=== PATIENT | female | born 1995 | race African-American/Black ===

== ENCOUNTER 2017-01-18 03:24 | Emergency (ER) | payer BC ==
[~2017-01-18] VITALS: Ht 165.1 cm; Wt 61.2 kg
[~2017-01-18 03:24] MED LIST: NKM
[2017-01-18] MEDS ORDERED: BIRTH CONTROL PILLS (03:32)
[2017-01-18] MEDS ORDERED: PHENAZOPYRIDIN200 MG ORAL (03:53)
[2017-01-18] MEDS ORDERED: KEFLEX500 MG ORAL (03:53)
--- NOTE | 2017-01-18 03:53 | Emergency Room Report ---
History of Present Illness General Chief Complaint: Female Urogenital Problems Source: Patient Present Illness HPI Is a 21-year-old female with no past medical history. She presents with chief complaint of dysuria, frequency, urgency and hematuria. Onset for 24 hours. No back pain. No fever or vomiting. Similar symptom in the past. Allergies: Coded Allergies: No Known Allergies (Unverified , 10/20/12) Patient History Past Medical History: none, see triage record, old chart reviewed Past Surgical History: none Pertinent Family History: none Social History: Denies: smoking Last Menstrual Period: nov Now: No Immunizations: other Reviewed Nursing Documentation: PMH: Agreed, PSxH: Agreed Nursing Documentation-PMH Past Medical History: No Stated History Review of Systems Eye: Denies: blurred vision, eye pain ENT: Denies: ear pain, nose congestion, throat swelling Respiratory: Denies: cough, shortness of breath Cardiovascular: Denies: chest pain, palpitations Gastrointestinal: Denies: abdominal pain, diarrhea, nausea, vomiting Genitourinary: Reports: dysuria, frequency, hematuria, pain, urgency Musculoskeletal: Denies: back pain, joint pain Skin: Denies: rash Neurological: Denies: headache, numbness Endocrine: Denies: increased thirst, increased urine Hematologic/Lymphatic: Denies: easy bruising All Other Systems: negative except mentioned in HPI Physical Exam Vital Signs Date Time Temp Pulse Resp B/P Pulse Ox O2 Delivery O2 Flow Rate FiO2 01/18/17 03:27 97.2 79 16 115/73 99 Room Air vitals normal Sp02 EP Interpretation: reviewed, normal General Appearance: well appearing, no apparent distress, alert Head: normocephalic, atraumatic Eyes: bilateral eye EOMI, bilateral eye PERRL ENT: hearing grossly normal, normal pharynx Neck: full range of motion, supple, no meningismus Respiratory: chest non-tender, lungs clear, normal breath sounds Cardiovascular #1: regular rate, rhythm, no murmur Gastrointestinal: normal bowel sounds, non tender, no mass, no organomegaly, no bruit, non-distended Musculoskeletal: back normal, gait/station normal, normal range of motion Psychiatric: mood/affect normal Skin: warm/dry Medical Decision Making Diagnostic Impression: Primary Impression: Cystitis ER Course Patient presents with UTI symptoms. No evidence of sepsis, pyelonephritis. Dose of antibiotics given here. Last Vital Signs Date Time Temp Pulse Resp B/P Pulse Ox O2 Delivery O2 Flow Rate FiO2 01/18/17 03:27 97.2 79 16 115/73 99 Room Air Status: improved Disposition: HOME, SELF-CARE Condition: Stable Scripts Phenazopyridine Hcl* (PYRIDIUM*) 200 Mg Tablet 200 MG ORAL THREE TIMES A DAY, #6 TAB 0 Refills Prov: PAMELA PIPER M.D. 01/18/17 Cephalexin* (KEFLEX*) 500 Mg Capsule 500 MG ORAL TID, #21 CAP 0 Refills Prov: PAMELA PIPER M.D. 01/18/17 Patient Instructions: Urinary Tract Infection Additional Instructions: Followup with your Dr. in 2-3 days. Return if symptom worsen. PAMELA PIPER M.D. Jan 18, 2017 03:53
[2017-01-18 04:00] VITALS: BP 115/73
[2017-01-18] MEDS ORDERED: Phenazopyridine 200mg tab ORAL ONE (04:00)
[2017-01-18] MEDS ORDERED: Cephalexin 500mg cap ORAL ONE (04:00)
[2017-01-18] MEDS ORDERED: Norco 5mg/325mg tab ORAL ONE (04:00)
== END 2017-01-18 04:00 | disposition home or self-care (01) ==
LOC: EMR 03:50
DX: N30.90 Cystitis, unspecified without hematuria (principal)
CPT/HCPCS: 87086; 87181; 99284

== ENCOUNTER 2017-07-15 06:09 | Emergency (ER) | payer BC ==
[~2017-07-15] VITALS: Ht 165.1 cm; Wt 62.1 kg
[~2017-07-15 06:09] MED LIST changes: +BIRTH CONTROL PILLS; +KEFLEX500 MG ORAL; +PHENAZOPYRIDIN200 MG ORAL
[2017-07-15 06:36] VITALS: BP 106/62
[2017-07-15] MEDS ORDERED: OMEPRAZOLE20 M2 ORAL (06:39)
[2017-07-15] MEDS ORDERED: Lidocaine 2% Visc 15ml soln ORAL ONE (06:45)
[2017-07-15] MEDS ORDERED: Famotidine 20 MG/ 2ML VIAL IVP ONE (06:45)
[2017-07-15] MEDS ORDERED: Dicyclomine HCl 10mg/5ml oral soln ORAL ONE (06:45)
[2017-07-15] MEDS ORDERED: Mylanta II UD 30ml ORAL ONE (06:45)
[2017-07-15 07:11] LABS: APPEARANCE,URINE SLIGHTLY CLOUDY; KETONES,URINE NEGATIVE (NEGATIVE); LEUKOCYTE ESTERASE ,URINE 1+ (NEGATIVE); NITRITE,URINE NEGATIVE (NEGATIVE); PH,URINE 7 (4.5-8.0); PROTEIN,URINE NEGATIVE (NEGATIVE); UROBILINOGEN,URINE 1 MG/DL (0.0-1.0)
[2017-07-15 07:15] VITALS: BP 112/66
[2017-07-15 07:20] LABS: MEAN CORPUSCULAR HEMOGLOBIN 31.3 PG (27.0-31.0); MEAN CORPUSCULAR HGB CONC 33.5 G/DL (32.0-36.0); MEAN CORPUSCULAR VOLUME 93 FL (80-99); MEAN PLATELET VOLUME 9.5 FL (6.5-10.1); PLATELET COUNT 182 K/UL (150-450); RED BLOOD COUNT 4.24 M/UL (4.20-5.40); RED CELL DISTRIBUTION WIDTH 11.1 % (11.6-14.8); WHITE BLOOD COUNT 11.4 K/UL (4.8-10.8)
[2017-07-15 07:29] LABS: ALANINE AMINOTRANSFERASE 12 U/L (3-33); ALBUMIN/GLOBULIN RATIO 1.1 (1.0-2.7); ANION GAP 12 (5-15); ASPARTATE AMINO TRANSFERASE 19 U/L (5-40); CALCIUM 8.7 mg/dL (8.6-10.2); CARBON DIOXIDE 23 mEQ/L (20-30); CHLORIDE 102 mEQ/L (98-107); CREATININE 0.7 mg/dL (0.5-0.9); GLOMERULAR FILTRATION RATE > 60 mL/min (>60); HEMOLYSIS 4; LIPASE 18 U/L (< 60); POTASSIUM 3.9 mEQ/L (3.4-4.9); SODIUM 137 mEQ/L (135-145); TOTAL PROTEIN 6.9 g/dL (6.6-8.7)
[2017-07-15 07:33] LABS: TROPONIN I < 0.30 ng/mL (<=0.30)
[2017-07-15 07:47] LABS: BACTERIA,URINE FEW /HPF; RBC,URINE 0-2 /HPF (0 - 2); SQUAMOUS EPITHELIAL CELL,UR FEW /LPF (NONE/OCC)
[2017-07-15] MEDS ORDERED: ZOFRAN ODT4 MG ORAL (08:11)
[2017-07-15] MEDS ORDERED: RANITIDINE HCL150 MG ORAL (08:11)
[2017-07-15 08:26] VITALS: BP 113/70
[2017-07-15 08:29] LABS: BAND NEUTROPHILS % (MANUAL) 0 % (0-8); BASOPHILS % (MANUAL) 0 % (0-2); EOSINOPHILS % (MANUAL) 1 % (0-3); LYMPHOCYTES % (MANUAL) 7 % (20-45); NEUTROPHILS % (MANUAL) 89 % (45-75); PLATELET ESTIMATE ADEQUATE; PLATELET MORPHOLOGY NORMAL; TOTAL CELLS COUNTED 100
--- NOTE | 2017-07-15 09:27 | Emergency Room Report ---
History of Present Illness General Chief Complaint: Abdominal Pain Source: Patient Present Illness HPI 22-year-old female presents ED for evaluation. States that since last night she 's been experiencing abdominal pain with vomiting and diarrhea. Pain is epigastric, sharp, 10 out of 10, nonradiating. Notes vomiting and diarrhea. States symptoms started shortly after eating dinner last night. Patient states she did recently returned from [place]. States she also took antibiotics approximately 2 weeks ago for UTI. Denies fevers or chills. No other aggravating relieving factors. Denies any other associated symptoms Allergies: Coded Allergies: No Known Allergies (Unverified , 10/20/12) Patient History Past Medical History: none Past Surgical History: none Pertinent Family History: none Social History: Denies: smoking, alcohol use, drug use Last Menstrual Period: JUN 23 Now: No Immunizations: UTD Reviewed Nursing Documentation: PMH: Agreed, PSxH: Agreed Review of Systems All Other Systems: negative except mentioned in HPI Physical Exam Vital Signs Date Time Temp Pulse Resp B/P (MAP) Pulse Ox O2 Delivery O2 Flow Rate FiO2 07/15/17 06:16 98.1 91 20 116/71 98 Room Air Sp02 EP Interpretation: reviewed, normal General Appearance: no apparent distress, alert, GCS 15, non-toxic Head: normocephalic, atraumatic Eyes: bilateral eye normal inspection, bilateral eye PERRL ENT: hearing grossly normal, normal pharynx, no angioedema, normal voice Neck: full range of motion, supple/symm/no masses Respiratory: chest non-tender, lungs clear, normal breath sounds, speaking full sentences Cardiovascular #1: regular rate, rhythm, no edema Cardiovascular #2: 2+ carotid (R), 2+ carotid (L), 2+ radial (R), 2+ radial (L) , 2+ dorsalis pedis (R), 2+ dorsalis pedis (L) Gastrointestinal: normal bowel sounds, soft, non-distended, no guarding, no rebound, tenderness Rectal: deferred Genitourinary: normal inspection, no CVA tenderness Musculoskeletal: back normal, gait/station normal, normal range of motion, non- tender Neurologic: alert, oriented x3, responsive, motor strength/tone normal, sensory intact, speech normal Psychiatric: judgement/insight normal, memory normal, mood/affect normal, no suicidal/homicidal ideation Reflexes: 3+ bicep (R), 3+ bicep (L), 3+ tricep (R), 3+ tricep (L), 3+ knee (R) , 3+ knee (L) Skin: normal color, no rash, warm/dry, well hydrated Lymphatic: no adenopathy Medical Decision Making Diagnostic Impression: Primary Impression: Gastroenteritis ER Course Hospital Course 22-year-old F presents to ED with cramping abdominal pain with vomiting, diarrhea differential diagnosis: gastritis, SBO, cholecystits, gastroenteritis Clinical course Patient placed on stretcher. 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 After initial history and physical I ordered labs, IV fluids, Zofran and Zantac Labs - minimal leukocytosis, electrolytes ok, LFTs normal, UA unremarkable Upon reassessment, patient states pain has improved. findings consistent with gastroenteritis Patient does have history I could complicate the etiology of the diarrhea including the recent travel and recent antibiotic use. However the symptoms did occur shortly after meal I discussed these issues with the patient. She will declines antibiotics at this time and will return if symptoms do not resolve I feel this is a highly complex case requiring extensive working including EKG/ Rhythm strip, Xray/CT/US, Blood/urine lab work, repeat exams while in ED, and administration of strong opiates/narcotics for pain control, admission to hospital or close patient follow up. Diagnosis - gastroenteritis Stable and discharged to home with prescriptions for Zantac, zofran. Followup with PMD. Return to ED if symptoms recur or worsen Labs Test 07/15/17 06:25 07/15/17 06:50 Urine Color Pale yellow Urine Appearance Slightly cloudy Urine pH 7 (4.5-8.0) Urine Specific [place] 1.010 (1.005-1.035) Urine Protein Negative (NEGATIVE) Urine Glucose (UA) Negative (NEGATIVE) Urine Ketones Negative (NEGATIVE) Urine Occult Blood Negative (NEGATIVE) Urine Nitrite Negative (NEGATIVE) Urine Bilirubin Negative (NEGATIVE) Urine Urobilinogen 1 MG/DL (0.0-1.0) Urine Leukocyte Esterase 1+ (NEGATIVE) Urine RBC 0-2 /HPF (0 - 2) Urine WBC 2-4 /HPF (0 - 2) Urine Squamous Epithelial Cells Few /LPF (NONE/OCC) Urine Bacteria Few /HPF (NONE) Urine HCG, Qualitative Negative White Blood Count 11.4 K/UL (4.8-10.8) Red Blood Count 4.24 M/UL (4.20-5.40) Hemoglobin 13.3 G/DL (12.0-16.0) Hematocrit 39.6 % (37.0-47.0) Mean Corpuscular Volume 93 FL (80-99) Mean Corpuscular Hemoglobin 31.3 PG (27.0-31.0) Mean Corpuscular Hemoglobin Concent 33.5 G/DL (32.0-36.0) Red Cell Distribution Width 11.1 % (11.6-14.8) Platelet Count 182 K/UL (150-450) Mean Platelet Volume 9.5 FL (6.5-10.1) Neutrophils (%) (Auto) % (45.0-75.0) Lymphocytes (%) (Auto) % (20.0-45.0) Monocytes (%) (Auto) % (1.0-10.0) Eosinophils (%) (Auto) % (0.0-3.0) Basophils (%) (Auto) % (0.0-2.0) Differential Total Cells Counted 100 Neutrophils % (Manual) 89 % (45-75) Lymphocytes % (Manual) 7 % (20-45) Monocytes % (Manual) 3 % (1-10) Eosinophils % (Manual) 1 % (0-3) Basophils % (Manual) 0 % (0-2) Band Neutrophils 0 % (0-8) Platelet Estimate Adequate Platelet Morphology Normal Red Blood Cell Morphology Normal Sodium Level 137 mEQ/L (135-145) Potassium Level 3.9 mEQ/L (3.4-4.9) Chloride Level 102 mEQ/L (98-107) Carbon Dioxide Level 23 mEQ/L (20-30) Anion Gap 12 (5-15) Blood Urea Nitrogen 9 mg/dL (7-23) Creatinine 0.7 mg/dL (0.5-0.9) Estimat Glomerular Filtration Rate > 60 mL/min (>60) Glucose Level 114 mg/dL (74-106) Calcium Level 8.7 mg/dL (8.6-10.2) Total Bilirubin 0.4 mg/dL (0.0-1.2) Aspartate Amino Transf (AST/SGOT) 19 U/L (5-40) Alanine Aminotransferase (ALT/SGPT) 12 U/L (3-33) Alkaline Phosphatase 51 U/L (35-104) Troponin I < 0.30 ng/mL (<=0.30) Total Protein 6.9 g/dL (6.6-8.7) Albumin 3.7 g/dL (3.5-5.2) Globulin 3.2 g/dL Albumin/Globulin Ratio 1.1 (1.0-2.7) Lipase 18 U/L (< 60) Last Vital Signs Date Time Temp Pulse Resp B/P (MAP) Pulse Ox O2 Delivery O2 Flow Rate FiO2 07/15/17 08:26 80 19 113/70 100 Room Air 07/15/17 07:15 97.3 Status: improved Disposition: HOME, SELF-CARE Condition: Stable Scripts Ondansetron Odt* (ZOFRAN ODT*) 4 Mg Tab.rapdis 4 MG ORAL Q6H Y for Nausea & Vomiting, #30 TAB 0 Refills Prov: DANIELE TRONCOSO M.D. 07/15/17 Ranitidine Hcl* (ZANTAC*) 150 Mg Tablet 150 MG ORAL TWICE A DAY, #30 TAB Prov: DANIELE TRONCOSO M.D. 07/15/17 Patient Instructions: Viral Gastroenteritis, Adult, [id number] DANIELE TRONCOSO M.D. Jul 15, 2017 09:27
[2017-07-16] MEDS ORDERED: LANSOPRAZOLE30 MG ORAL (07:04)
== END 2017-07-15 08:28 | disposition home or self-care (01) ==
LOC: EMR 06:35
DX: K52.9 Noninfective gastroenteritis and colitis, unspecified (principal)
CPT/HCPCS: 36415; 80053; 81003; 81025; 83690; 84484; 85007; 85025; 96360; 96374; 96375; 99284; J2405; S0028

== ENCOUNTER 2017-07-16 06:31 | Emergency (ER) | payer BC ==
[~2017-07-16] VITALS: Ht 165.1 cm; Wt 62.1 kg
[~2017-07-16 06:31] MED LIST changes: +OMEPRAZOLE20 M2 ORAL; +RANITIDINE HCL150 MG ORAL; +ZOFRAN ODT4 MG ORAL
[2017-07-16 06:56] VITALS: BP 117/71
[2017-07-16] MEDS ORDERED: Famotidine 20 MG/ 2ML VIAL IVP ONE (07:00)
[2017-07-16] MEDS ORDERED: Esomeprazole sodium 40mg vial IVP ONE (07:00)
--- NOTE | 2017-07-16 07:02 | Emergency Room Report ---
History of Present Illness General Chief Complaint: Abdominal Pain Source: Patient Present Illness HPI 22YOF walk-in with continued epigastric pain, /, gnawing in sensation, worse overnight. Was here yesterday morning for same. Labs/urine checked. Mild leuks. Was given PO zofran, pepcid for presumed gastroenteritis. Took one of each, no improvement. Pain has NOT migrated. History of acid reflux. 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." Takes daily PPI, zantac Had more episodes of vomiting last night Denies urinary complaints Allergies: Coded Allergies: No Known Allergies (Unverified , 10/20/12) Patient History Past Medical History: other - acid reflux Past Surgical History: none Pertinent Family History: none Social History: Denies: smoking, alcohol use, drug use Last Menstrual Period: 06/23/17 Now: No : 0 Para: 0 Immunizations: UTD Reviewed Nursing Documentation: PMH: Agreed, PSxH: Agreed Review of Systems All Other Systems: negative except mentioned in HPI Physical Exam Vital Signs Date Time Temp Pulse Resp B/P (MAP) Pulse Ox O2 Delivery O2 Flow Rate FiO2 07/16/17 06:36 97.5 101 16 118/69 97 Room Air Sp02 EP Interpretation: reviewed, normal General Appearance: normal inspection, well appearing, no apparent distress, alert Head: atraumatic ENT: normal ENT inspection, hearing grossly normal, normal voice Neck: normal inspection, full range of motion, supple, no bony tend Respiratory: normal inspection, lungs clear, normal breath sounds, no respiratory distress, no retraction, no wheezing Cardiovascular #1: regular rate, rhythm, no edema Gastrointestinal: normal inspection, normal bowel sounds, soft, no guarding, no hernia, other - +epigastric ttp. No rebound, guarding or peritonitis. Genitourinary: no CVA tenderness Musculoskeletal: normal inspection, back normal, normal range of motion, Binta' s Sign negative Neurologic: normal inspection, alert, oriented x3, responsive, tongue stitcher III-XII nml as tested, motor strength/tone normal, speech normal Psychiatric: normal inspection, judgement/insight normal, mood/affect normal Skin: normal inspection, normal color, no rash Medical Decision Making Diagnostic Impression: Primary Impression: Gastroenteritis Additional Impression: Abdominal pain Qualified Codes: R10.13 - Epigastric pain ER Course VSS. Afebrile Pain remains epigastric. Non-radiating Low suspicion for appy, jag given now normalized WBC, no LFT or lipase abnormality Improved with addition of IV nexium today Tolerating PO Will Rx stronger PPI Needs endoscopy - gave referral for Dr Pruitt who actually saw patient in ED DC home Last Vital Signs Date Time Temp Pulse Resp B/P (MAP) Pulse Ox O2 Delivery O2 Flow Rate FiO2 07/16/17 06:56 106 14 117/71 99 Room Air 07/16/17 06:36 97.5 Status: improved Disposition: HOME, SELF-CARE Scripts Lansoprazole* (LANSOPRAZOLE*) 30 Mg Capsule. 30 MG ORAL DAILY for 30 Days, #30 CAP Prov: HOSSEIN POTTS M.D. 07/16/17 HOSSEIN POTTS M.D. Jul 16, 2017 07:02
[2017-07-16] MEDS ORDERED: LANSOPRAZOLE30 MG ORAL (07:04)
[2017-07-16 07:50] LABS: MEAN CORPUSCULAR HEMOGLOBIN 30.5 PG (27.0-31.0); MEAN CORPUSCULAR VOLUME 92 FL (80-99); MEAN PLATELET VOLUME 8.8 FL (6.5-10.1); PLATELET COUNT 197 K/UL (150-450); RED BLOOD COUNT 4.59 M/UL (4.20-5.40); RED CELL DISTRIBUTION WIDTH 10.7 % (11.6-14.8); WHITE BLOOD COUNT 10.8 K/UL (4.8-10.8)
[2017-07-16 08:04] VITALS: BP 106/62
[2017-07-16 08:04] LABS: ALANINE AMINOTRANSFERASE 13 U/L (3-33); ALBUMIN/GLOBULIN RATIO 1.2 (1.0-2.7); ANION GAP 13 (5-15); ASPARTATE AMINO TRANSFERASE 20 U/L (5-40); CALCIUM 8.9 mg/dL (8.6-10.2); CARBON DIOXIDE 21 mEQ/L (20-30); CHLORIDE 99 mEQ/L (98-107); CREATININE 0.8 mg/dL (0.5-0.9); GLOMERULAR FILTRATION RATE > 60 mL/min (>60); HEMOLYSIS 24; LIPASE 34 U/L (< 60); POTASSIUM 3.8 mEQ/L (3.4-4.9); SODIUM 133 mEQ/L (135-145); TOTAL PROTEIN 7.3 g/dL (6.6-8.7)
[2017-07-16 08:20] VITALS: BP 116/75
[2017-07-16 08:25] LABS: BAND NEUTROPHILS % (MANUAL) 1 % (0-8); EOSINOPHILS % (MANUAL) 1 % (0-3); LYMPHOCYTES % (MANUAL) 7 % (20-45); NEUTROPHILS % (MANUAL) 87 % (45-75); TOTAL CELLS COUNTED 100
[2017-07-16 08:27] LABS: BASOPHILS % (MANUAL) 0 % (0-2); PLATELET ESTIMATE ADEQUATE; PLATELET MORPHOLOGY NORMAL
== END 2017-07-16 08:32 | disposition home or self-care (01) ==
LOC: EMR 07:11
DX: K21.9 Gastro-esophageal reflux disease without esophagitis (principal); R10.13 Epigastric pain
CPT/HCPCS: 36415; 80053; 83690; 85007; 85025; 96374; 96375; 99284; J2405; S0028

== ENCOUNTER 2018-11-07 04:56 | Emergency (ER) | payer BC ==
[~2018-11-07] VITALS: Ht 167.6 cm; Wt 61.2 kg
[~2018-11-07 04:56] MED LIST changes: +LANSOPRAZOLE30 MG ORAL
[2018-11-07 05:33] VITALS: BP 107/70
[2018-11-07] MEDS ORDERED: TYLENOL EXTRA500 MG ORAL (05:50)
[2018-11-07 05:58] VITALS: BP 107/70
[2018-11-07] MEDS ORDERED: Dexamethasone 4mg/ml vial IM ONE (06:00)
[2018-11-07] MEDS ORDERED: Acetaminophen 500mg (ES) tab ORAL ONE (06:00)
--- NOTE | 2018-11-07 06:24 | Emergency Room Report ---
History of Present Illness General Chief Complaint: Sore Throat Source: Patient Present Illness HPI 23-year-old female presents ED for evaluation. Complaining of sore throat. Started 2 days ago. Getting progressively worse. Also notes ear ache and runny nose. Pain is throbbing, 9 out of 10, nonradiating. Denies fevers or chills. States it is difficult to swallow. Denies sick contacts or recent travel. No other aggravating relieving factors. Denies any other associated symptoms Allergies: Coded Allergies: No Known Allergies (Unverified , 10/20/12) Patient History Past Medical History: none Past Surgical History: none Pertinent Family History: none Social History: Denies: smoking, alcohol use, drug use Last Menstrual Period: 1 month ago. Now: No Immunizations: UTD Reviewed Nursing Documentation: PMH: Agreed; PSxH: Agreed Nursing Documentation-PMH Past Medical History: No Stated History Review of Systems All Other Systems: negative except mentioned in HPI Physical Exam Vital Signs Date Time Temp Pulse Resp B/P (MAP) Pulse Ox O2 Delivery O2 Flow Rate FiO2 11/07/18 05:20 97.5 87 18 107/70 99 Room Air Sp02 EP Interpretation: reviewed, normal General Appearance: no apparent distress, alert, GCS 15, non-toxic Head: normocephalic, atraumatic Eyes: bilateral eye normal inspection, bilateral eye PERRL ENT: hearing grossly normal, normal pharynx, no angioedema, normal voice Neck: full range of motion, supple/symm/no masses Respiratory: chest non-tender, lungs clear, normal breath sounds, speaking full sentences Cardiovascular #1: regular rate, rhythm, no edema Cardiovascular #2: 2+ carotid (R), 2+ carotid (L), 2+ radial (R), 2+ radial (L) , 2+ dorsalis pedis (R), 2+ dorsalis pedis (L) Gastrointestinal: normal bowel sounds, non tender, soft, non-distended, no guarding, no rebound Rectal: deferred Genitourinary: normal inspection, no CVA tenderness Musculoskeletal: back normal, gait/station normal, normal range of motion, non- tender Neurologic: alert, oriented x3, responsive, motor strength/tone normal, sensory intact, speech normal Psychiatric: judgement/insight normal, memory normal, mood/affect normal, no suicidal/homicidal ideation Reflexes: 3+ bicep (R), 3+ bicep (L), 3+ tricep (R), 3+ tricep (L), 3+ knee (R) , 3+ knee (L) Skin: normal color, no rash, warm/dry, well hydrated Lymphatic: no adenopathy Medical Decision Making Diagnostic Impression: Primary Impression: Viral pharyngitis ER Course Hospital Course 23 yo F presents with sore throat, runny nose, ear pain Differential diagnoses include: URI, pharyngitis, otitis media, asthma Clinical course Patient placed on stretcher. After initial history, physical exam reveals a young female in no acute distress. Bilateral TM unremarkable. No pharyngeal erythema. No tonsillar exudates. No lymphadenopathy. lungs clear. abdomen soft. Clinical findings consistent with viral pharyngitis. Discussed findings with patient. No antibiotics indicated at this time. Patient is noting difficulty with swallowing. Given Decadron here. We'll discharge with Tylenol. Safe for discharge with close outpatient follow-up Diagnosis - viral pharyngitis Stable and discharged home with Rx Tylenol. Instructed to followup with PMD. Return to ED if symptoms recur or worsen Last Vital Signs Date Time Temp Pulse Resp B/P (MAP) Pulse Ox O2 Delivery O2 Flow Rate FiO2 11/07/18 05:58 97.5 87 18 107/70 99 Room Air Status: improved Disposition: HOME, SELF-CARE Condition: Stable Scripts Acetaminophen* (TYLENOL EXTRA STRENGTH*) 500 Mg Tablet 500 MG ORAL Q6H PRN for Mild Pain/Temp > 100.5, #30 TAB 0 Refills Prov: Franklin Rutherford MD 11/07/18 Referrals: NON PHYSICIAN (PCP) Patient Instructions: Pharyngitis, [id number] Franklin Rutherford MD Nov 07, 2018 06:24
== END 2018-11-07 05:58 | disposition home or self-care (01) ==
LOC: EMR 05:50
DX: J02.8 Acute pharyngitis due to other specified organisms (principal); B97.89 Other viral agents as the cause of diseases classified elsewhere
CPT/HCPCS: 96372; 99283; J1100

== ENCOUNTER 2018-11-09 16:10 | Emergency (ER) | payer BC ==
[~2018-11-09] VITALS: Ht 167.6 cm; Wt 61.2 kg
[~2018-11-09 16:10] MED LIST changes: +TYLENOL EXTRA500 MG ORAL
[2018-11-09] MEDS ORDERED: NKM (16:29)
[2018-11-09 16:30] VITALS: BP 109/75
--- NOTE | 2018-11-09 16:45 | Emergency Room Report ---
History of Present Illness General Chief Complaint: Sore Throat Source: Patient Present Illness HPI 23-year-old female presents to the emergency department complaining of 7 out of 10 in severity pain localized to her throat only times 4 days. Patient states that she was here in the emergency department 4 days ago and was diagnosed with viral pharyngitis. Patient states that her symptoms have not improved and today when she was supposed to be getting her teeth cleaned, but the dental hygienist said that she cannot have her cleaning performed and that she needs to go to the ER because her tonsils are swollen. Pt. denies fever she reports her pain is inconsistent, denies changes in her voice. Pt reports pain is exacerbated with swallowing. No other complaints at this time. Allergies: Coded Allergies: No Known Allergies (Unverified , 10/20/12) Patient History Past Medical History: see triage record Past Surgical History: none Pertinent Family History: none Last Menstrual Period: 09/21/18 Now: No Reviewed Nursing Documentation: PMH: Agreed; PSxH: Agreed Nursing Documentation-PMH Past Medical History: No History, Except For Review of Systems All Other Systems: negative except mentioned in HPI Physical Exam Vital Signs Date Time Temp Pulse Resp B/P (MAP) Pulse Ox O2 Delivery O2 Flow Rate FiO2 11/09/18 16:26 97.7 62 18 109/75 98 Room Air Sp02 EP Interpretation: reviewed, normal General Appearance: no apparent distress, alert, GCS 15, non-toxic Head: normocephalic, atraumatic Eyes: bilateral eye normal inspection, bilateral eye PERRL ENT: hearing grossly normal, no angioedema, normal voice, TMs + canals normal, uvula midline, moist mucus membranes, tonsillar swelling, pharyngeal erythema, other - no tonsillar exudates Neck: full range of motion, no meningismus, no bony tend Respiratory: lungs clear, normal breath sounds, speaking full sentences Cardiovascular #1: regular rate, rhythm Musculoskeletal: back normal, gait/station normal, normal range of motion, non- tender Neurologic: alert, oriented x3, responsive, motor strength/tone normal, sensory intact, normal gait, speech normal, grossly normal Psychiatric: judgement/insight normal Skin: normal color, no rash, warm/dry, well hydrated Lymphatic: no adenopathy Medical Decision Making PA Attestation Dr. Sarabia is my supervising Physician whom patient management has been discussed with. Diagnostic Impression: Primary Impression: Pharyngitis, acute Qualified Codes: J02.9 - Acute pharyngitis, unspecified ER Course 23-year-old female presents to the emergency department complaining of 7 out of 10 in severity pain localized to her throat only times 4 days. Patient states that she was here in the emergency department 4 days ago and was diagnosed with viral pharyngitis. Patient states that her symptoms have not improved and today when she was supposed to be getting her teeth cleaned, but the dental hygienist said that she cannot have her cleaning performed and that she needs to go to the ER because her tonsils are swollen. Pt. denies fever she reports her pain is inconsistent, denies changes in her voice. Pt reports pain is exacerbated with swallowing. No other complaints at this time. Ddx considered but are not limited to: pharyngitis, strep, SHRIMP PEELING MACHINE OPERATOR, ludwigs angina, URI Vital signs: are WNL, pt. is afebrile H&PE are most consistent with: pharyngitis presumed strep---however I discussed with this patient that she should delay antibiotic for another few days to see if her symptoms resolve as in my opinion her physical exam is not make me highly suspicious strep pharyngitis. Pt. will receive delayed abx for not having improvement of her symptoms ORDERS: None required at this time as the diagnosis is clinical ED INTERVENTIONS: none required at this time. DISCHARGE: At this time pt. is stable for d/c to home. Will provide printed patient care instructions, and any necessary prescriptions. Care plan and follow up instructions have been discussed with the patient prior to discharge. Last Vital Signs Date Time Temp Pulse Resp B/P (MAP) Pulse Ox O2 Delivery O2 Flow Rate FiO2 11/09/18 16:26 97.7 62 18 109/75 98 Room Air Disposition: HOME, SELF-CARE Condition: Stable Scripts Amoxicillin/Potassium Clav 875-125* (AUGMENTIN 875-125 TABLET*) 1 Each Tablet 1 TAB ORAL TWICE A DAY for 10 Days, #20 TAB Prov: Bessy Baez 11/09/18 Ibuprofen* (MOTRIN*) 600 Mg Tablet 600 MG ORAL THREE TIMES A DAY, #30 TAB 0 Refills Prov: Bessy Baez 11/09/18 Patient Instructions: Tonsillitis Additional Instructions: Take medications as directed. Follow up with a Primary Care Provider in 3-5 days, even if your symptoms have resolved. --Please review list of primary care clinics, if you do not already have a primary care provider Return sooner to ED if new symptoms occur, or current symptoms become worse. - Please note that this Emergency Department Report was dictated using [employer] manager technology software, occasionally this can lead to erroneous entry secondary to interpretation by the dictation equipment. Bessy Baez Nov 09, 2018 16:45
[2018-11-09] MEDS ORDERED: AUGMENTIN 875-1 EAC1 ORAL (16:53)
[2018-11-09] MEDS ORDERED: IBUPROFEN600 MG ORAL (16:53)
[2018-11-09 17:00] VITALS: BP 115/72
== END 2018-11-09 17:00 | disposition home or self-care (01) ==
LOC: EMR 17:00
DX: J02.9 Acute pharyngitis, unspecified (principal)
CPT/HCPCS: 99283